=== PATIENT | female | born 1980 | race Caucasian/White ===

== ENCOUNTER 2018-09-18 01:13 | Inpatient (IN) ==
[2018-09-18] MEDS ORDERED: NS 1,000 ML IV ONE ×3 (01:30→04:51)
[2018-09-18 01:43] LABS: BE -19.9 mmoll (-2.0-2.0); BLOOD TYPE VENOUS; HCO3-(ACT) 9.3 mmoll (22-27); PCO2(98.6) 21 mmHg (40-60); PO2(98.6) 93 mmHg (30-55); SAMPLE BLOOD; SAO2 98.1 % (40.0-85.0)
[2018-09-18 01:46] LABS: pH(98.6) 7.14 (7.32-7.43)
--- NOTE | 2018-09-18 01:59 | PROVIDER DOCUMENTATION ---
This chart was entered by Annelise Lopez Scribe, acting as scribe for Nory Durham DO. HPI-General Adult - General Stated Complaint: high blood sugar Time Seen by Provider: 09/18/18 01:18 Source: patient Allergies/Adverse Reactions: Patient Allergies Allergy/AdvReac Type Severity Reaction Status Date / Time amoxicillin [From Augmentin] Allergy RASH Verified 09/18/18 01:31 cefaclor [From Ceclor] Allergy ITCHING Verified 09/18/18 01:31 clavulanic acid Allergy RASH Verified 09/18/18 01:31 [From Augmentin] Sulfa (Sulfonamide Allergy Unknown Verified 09/18/18 01:31 Antibiotics) Home Medications: Home Medication List Medication Instructions Recorded Confirmed Last Taken Type Insulin Aspart [Novolog] 1 pump SQ DAILY 02/10/14 06/04/17 05/30/17 History Venlafaxine [Effexor] 37.5 mg PO DAILY 05/30/17 06/04/17 05/30/17 History Dextroamphetamine/Amphetamine 30 mg PO DAILY 06/04/17 06/04/17 Unknown History [Adderall Xr 30 mg Capsule] Hydrocodone/Acetaminophen [[place] 1 each PO PRN PRN #20 tablet 06/06/17 Unknown Rx 7.5-325 Tablet] - History of Present Illness -Gen Adult Nature of Presenting Problems: Patient is a 38 year old female who presents to the ED via EMS with nausea, vomiting and fatigue. Patient states symptoms started this morning. Patient states she tried to change her insulin pump this morning and fell asleep. Patient states checking her blood sugar this morning and FSBS was 350. Patient states her boyfriend checked her blood sugar prior to calling EMS and FSBS was 480. Patient states she has had 2 shots of insulin today. Location of Pain/Injury: reports: none Pain Radiation: reports: no radiation Quality of Pain: reports: none Severity: reports: mild Onset/Duration: reports: this morning Timing: reports: still present Context/Activities at Onset: reports: light activity Modifying Factors: improves with: nothing Associated Symptoms: reports: fatigue, nausea, vomiting Similar Symptoms Previously?: No Recently seen or treated by another doctor?: No - Diabetes Related Context Context: reports: high blood sugar Review of Systems - Adult - REVIEW OF SYSTEMS - ADULT Constitutional: reports: duke. denies: chills, fever Eyes: reports: no symptoms reported Ears, Nose, Mouth & Throat: reports: no symptoms reported Cardiovascular: reports: no symptoms reported Respiratory: reports: no symptoms reported Gastrointestinal: reports: nausea, vomiting. denies: abdominal pain, diarrhea Genitourinary: reports: no symptoms reported Musculoskeletal: reports: no symptoms reported Integumentary: reports: no symptoms reported Neurological: reports: no symptoms reported Psychiatric: reports: no symptoms reported Endocrine: reports: no symptoms reported Hematologic/Lymphatic: reports: no symptoms reported Allergic/Immunologic: reports: no symptoms reported All Other Systems: Reviewed and Negative Past History - Adult - PAST MEDICAL HISTORY-ADULT Review of Records: reports: Nursing Assessment Review, Medications Reviewed, Social history reviewed & non-contributory. Major Childhood Illnesses: reports: denies history Cardiovascular: reports: denies history Respiratory: reports: denies history Gastrointestinal: reports: denies history Obstetrical/Gynecological: reports: denies history Genitourinary: reports: denies history Musculoskeletal: reports: denies history Neurological: reports: denies history Psychiatric: reports: anxiety Endocrine/Immune: reports: Diabetes Other Conditions: reports: denies history - PRIOR SURGERIES/PROCEDURES Surgical/Procedure History: reports: hysterectomy - IMMUNIZATION STATUS Childhood Immunizations: See Nurse Assessment Flu Vaccine: See Nurse Assessment - FAMILY HISTORY Family History: reviewed, not pertinent - SOCIAL HISTORY Smoking: denies Substance Use: denies Living Situation: family Physical Exam-General - PHYSICAL EXAM-ADULT Initial Vital Signs Reviewed: Yes - CONSTITUTIONAL General Appearance: alert, no apparent distress - EYES Eyes: PERRL/EOMI, pink conjunctivae - HEAD, EARS, NOSE, MOUTH & THROAT HENMT: normocephalic/atraumatic, other (dry mucous membranes) - NECK Neck: non-tender, full range of motion - RESPIRATORY Respiratory: chest non-tender, lungs clear, normal breath sounds - CARDIOVASCULAR Cardiovascular: normal peripheral pulses, tachycardia - GASTROINTESTINAL (ABDOMEN) Abdominal Exam: normal bowel sounds, non tender, soft - LYMPHATIC Lymphatic: no adenopathy - MUSCULOSKELETAL Back Exam: normal inspection, no CVA tenderness Extremity: normal range of motion, non-tender - SKIN Integumentary: normal color, normal turgor, warm/dry - NEUROLOGIC Neurologic: grossly normal - PSYCHIATRIC Psych/Mental Status: normal mood/affect, oriented x 3 Progress - PLAN OF CARE/RESULTS Progress/Plan/Lab Results: Clinically stable while in the ED. Her pH is 7.1, bicarb 8, gap 26. She was bolused 2 liters of NS and given 4 units reg insulin and later started on insulin gtt. She was initially only given a bolus of 4 units because her BG was 380 per finger stick. She was admitted to CCU to the hospitalist service for further eval and tx. Result Diagrams: 09/18/18 01:25 09/18/18 01:25 Departure - Departure Date of Disposition Decision: 09/18/18 Time of Disposition Decision: 05:00 DIAGNOSIS: DKA, type 1 Qualifiers: Diabetes mellitus complication detail: without coma Qualified Code(s): E10.10 - Type 1 diabetes mellitus with ketoacidosis without coma Disposition: ADMITTED INPATIENT 09 Certified Medical Emergency: Emergent Condition: Fair Referrals and Follow-Ups: Andres Loo CRNP [Primary Care Provider] - - Critical Care Note This patient required my direct & personal management of CC.: Yes Total Time (mins): 33 Critical Care Statement: This patient required my direct personal management to treat or rule out processes, the absence of which, could potentiallly result in sudden, clinically significant life or limb threatening deterioration. Attestation - Physician/ LUPE Attestation The physician spent face to face time with patient:: Yes Advanced Practice Provider documentation review:: Supervising physician onsite and consulted in the evaluation and care of this patient. The physician did have a face to face encounter with the patient. This chart was documented by the indicated scribe, (Annelise Lopez Scribe) and accurately reflects the services I performed and decisions made by me, Nory Durham DO, as attested by the provider's signature.
[2018-09-18 04:19] LABS: BASO# 0.11 X1000 (0.0-0.2); BASO% 0.3 % (0.0-0.8); EOS# 0.04 X1000 (0.0-0.7); EOS% 0.1 % (0.0-10.0); HEMATOCRIT 46.3 % (37.0-47.0); HEMOGLOBIN 15.7 g/dL (12.0-16.0); IMM GRAN# 0.26 X1000 (0.0-0.04); IMM GRAN% 0.6 % (0.0-0.5); LYMPH# 2.45 X1000 (1.2-3.4); LYMPH% 6.1 % (20.5-51.1); MCHC 33.9 g/dL (33-37); MCV 85.4 FL (81-99); MONO# 1.38 X1000 (0.11-0.59); MONO% 3.4 % (1.7-9.3); MPV 11.1 FL (7.4-10.4); NEUT# 36.02 X1000 (1.4-6.5); NEUT% 89.5 % (42.2-75.2); PLT 409 X1000 (130-400); RBC 5.42 XMIL (4.2-5.4); RDW 13.2 % (11.5-14.5); WBC 40.26 X1000 (4.8-10.8)
[2018-09-18] MEDS ORDERED: HUMULIN R IV ONE (04:22)
[2018-09-18 04:39] LABS: ESTIMATED GFR > 60
[2018-09-18 04:42] LABS: AGAP 26; ALBUMIN 4.3 g/dL (3.5-5.0); ALKALINE PHOSPHATASE 116 U/L (32-104); BUN 21 mg/dL (8-22); CALCIUM 9.8 mg/dL (8.8-10.2); CHLORIDE 97 mmol/L (98-107); COSMO 287; GOT 37 U/L (10-30); GPT 28 U/L (10-36); SODIUM 131 mmol/L (136-145); TCO2 8 mmol/L (25-35); TOTAL PROTEIN 7.9 g/dL (6.3-8.3)
[2018-09-18 04:51] LABS: GLUCOSE 485 mg/dL (70-104)
[2018-09-18] MEDS ORDERED: MAGNESIUM SULFATE 2 GM/S.W.I. 2 GM/50 ML IVPB IV ONE (04:59)
[2018-09-18 05:05] LABS: ACETONE SERUM LARGE (NEGATIVE)
[2018-09-18] MEDS ORDERED: COMPAZINE IV PRN (05:41)
[2018-09-18] MEDS ORDERED: COMPAZINE PO PRN (05:47)
[2018-09-18] MEDS ORDERED: POTASSIUM CHLORIDE 20% LIQUID PO PRN (05:47)
[2018-09-18] MEDS: NS 1,000 ML IV SCH ×3 (05:47→07:47)
[2018-09-18] MEDS ORDERED: MAGNESIUM SULFATE 2 GM/S.W.I. 2 GM/50 ML IVPB IV PRN (05:47)
[2018-09-18] MEDS ORDERED: D50W SYRINGE IV PRN (05:47)
--- NOTE | 2018-09-18 06:53 | HISTORY AND PHYSICAL ---
Patient of Ritika Paul in [place]. REASON FOR ADMISSION: One day history of vomiting and fatigue. Ms. Blessing Fong is a 38-year-old lady with a past medical history of type 1 diabetes. She comes in today complaining of 1-day history of vomiting and fatigue. She checks her blood sugar and they are reading very high. She says that whenever she gets a reading this high, she usually starts to either get sick to her stomach or vomit. She says this usually signifies that her insulin pump is either empty or running low. She said she tries to change out her pump and fill it up with insulin but for some reason, she just went into a state of somnolence for about 1-2 hours. By the time she was awakened by her daughter, her nausea had intensified and she developed polyuria and polydipsia with increased weakness. She then decided to come to the ER to be evaluated. Since she has been here, she has received about 2 L of normal saline and 4 units of insulin and feels better. REVIEW OF SYSTEMS: A 12 system review was done. Positive findings per HPI. No cardiorespiratory. No additional GI or complaints. No focal neurological complaints. The patient did state she developed shortness of breath and tachypnea but this has resolved with administration of fluid. ALLERGIES: She is allergic to Augmentin, cephalosporins, sulfa, sulfonamides. HOME MEDICATIONS: Have not been reconciled but she does take insulin pump. FAMILY HISTORY: Significant for cancer in her family, i.e. colon cancer in her dad at 46, type 1 diabetes in her mother. SURGICAL HISTORY: She has had a tonsillectomy, ORIF of the left hand, hysterectomy, section, BSO. SOCIAL HISTORY: She does not smoke, drink or use illicit drugs. LAB WORK: Sodium 131. Anion gap 26. Bicarb is 8. BUN is 21, creatinine 1.0. Glucose 485. AST 37, ALT 28, alkaline phosphatase 116. White count 40,000, H and H 15 and 46, platelets 409,000 with 89% neutrophils. Large acetones. PH 7.14 with PCO2 of 93, bicarb of 21, lactate 3.9. PHYSICAL EXAMINATION: VITAL SIGNS: Temperature is 97.7 degrees, heart rate is 109, respirations 19, 100% on room air. 113/62 blood pressure. GENERAL: She is a middle-aged woman who is A and O x3, normal mood and affect. HEENT: Head is normocephalic, atraumatic. ENT and oropharyngeal exam is grossly normal. No central cyanosis. NECK: Supple. No JVD, carotid bruits or thyromegaly. Good skin turgor. CHEST: Clear to auscultation with good air entry in both lung baig. CARDIOVASCULAR: First and second heart sounds heard. No gallops, murmurs or rubs. Rhythm is regular. ABDOMEN: Full, soft, nontender. No organomegaly. Bowel sounds are normal. RECTAL: Deferred at this time. EXTREMITIES: Patient has a slightly diminished pulse volume but rapid, symmetrical, regular. No edema, clubbing or peripheral cyanosis. NEUROLOGIC: No focal deficits. SKIN: Intact. No breakdown, lesions or erythema. MUSCULAR: Grossly normal. ASSESSMENT: 1. DKA. 2. Severe dehydration. 3. Reactive leukocytosis. PLAN: Patient will be initiated on our DKA protocol. Once she is out of DKA, her insulin pump can be restarted. I do anticipate that within 24 hours, i.e. by tomorrow, she should be out of DKA. Urinalysis and other studies have been ordered to rule out coexistent infection ; however, patient denies any other complaints. Electrolytes need to be followed closely. Patient' s EKG did show sinus tachycardia with QT prolongation. For now, we will prophylactically replace magnesium and recheck EKG later today. IV crystalloid replacement. Total critical care time was 38 minutes. The patient will be admitted to the ICU for better management of her symptoms. cc: MD Dr. Humberto Duke [place] MTDD
[2018-09-18 07:12] LABS: I-STAT BE -19 mmoll (-2-3); I-STAT GLUCOSE 342 mg/dL (70-105); I-STAT HEMOGLOBIN 12.9 g/dL (11.5-17.5); I-STAT K 4.2 mmoll (3.5-4.9); I-STAT TCO2 10 mmoll (23-27); I-STAT pH 7.182 (7.350-7.450)
[2018-09-18 07:14] LABS: BANDS 5 % (0-1); LYMPHS 8 % (21-51); MONO 4 % (1-9); SEGS 83 % (42-75)
--- NOTE | 2018-09-18 07:18 | EKG Report ---
Test Performed on : 09/18/2018 01:50:53 AM Test Reason : weakness, sob, nv Blood Pressure : / mmHG Vent. Rate : 107 BPM Atrial Rate : 107 BPM P-R Int : 126 ms QRS Dur : 102 ms QT Int : 406 ms P-R-T Axes : 066 058 043 degrees QTc Int : 542 ms Sinus tachycardia. Prolonged QT Abnormal ECG No previous ECGs available Unconfirmed Result
[2018-09-18 07:59] LABS: CHOLESTEROL 181 mg/dL (0-200); HDL 75 mg/dL (45-65); LDL 98 mg/dL; MAGNESIUM 2.5 mg/dL (1.5-2.7); PHOSPHORUS 5.3 mg/dL (2.7-4.5); TRIGLYCERIDES 38 mg/dL (35-135); VLDL 8 mg/dL
[2018-09-18] MEDS: HUMULIN R 100 UNIT in NS 99 ML IV SCH (08:36)
[2018-09-18] MEDS: POTASSIUM CHLORIDE 10 MEQ in NS 1,000 ML IV SCH ×5 (08:50→22:02)
[2018-09-18 09:02] LABS: URINE SOURCE CLEAN CATCH
[2018-09-18 09:07] LABS: BILIRUBIN URINE NEGATIVE (NEGATIVE); BLOOD URINE NEGATIVE (NEGATIVE); COLOR YELLOW; GLUCOSE URINE >1000 mg/dL (NEGATIVE); KETONE URINE >150 mg/dL (NEGATIVE); LEUKOCYTES URINE NEGATIVE (NEGATIVE); NITRITE URINE NEGATIVE (NEGATIVE); PROTEIN URINE NEGATIVE (NEGATIVE); SP GRAVITY URINE 1.016; TURBIDITY URINE CLEAR (CLEAR); UROBILINOGEN URINE NORMAL (NORMAL)
[2018-09-18 09:08] LABS: UR EPITHELIAL CELLS <10 /HPF (<10); URINE BACTERIA NEGATIVE /HPF; URINE RBC <10 /HPF (<10); URINE WBC <10 /HPF (<10)
--- NOTE | 2018-09-18 10:23 | Diag Imaging Result Doc PS360 ---
EXAM: CHEST-2 VIEWS HISTORY: leukocytosis dyspnea TECHNIQUE: Chest two views COMPARISON: None. FINDINGS: The lungs are well expanded. The heart is not enlarged. The vessels are not distended. There are no infiltrates. No pleural effusions. IMPRESSION: No pneumonia. Electronically signed by Fran Aleman 09/18/2018 10:21 AM
--- NOTE | 2018-09-18 10:27 | PROGRESS NOTE ---
DATE: 09/18/2018 SUBJECTIVE: Ms. Fong came in with a 1-day history of vomiting, and she is followed by BRII Driscoll. A 38-year-old with a past medical history of diabetes mellitus, type 1, came in complaining of vomiting and fatigue. Blood sugars were reading very high. She usually starts to either get sick in her stomach or vomits. She says it usually signifies the pump is either empty or running out and tries to change her pump and fill it up with some insulin. But, for some reason, she just went on and stayed in state of somnolence for a couple of hours. On presentation, she was in diabetic ketoacidosis. She was admitted and put on DKA protocol. The temp 97.7 degrees, pulse 100, respirations 19, blood pressure 141/77. Pupils are equal and round. Lungs are clear in all lung baig. Cardiovascular: Regular rhythm and rate without murmur or S3. Abdomen is soft. She is sleeping at the present time and breathing comfortably. I reviewed lab. When she came in, white count was 40,260 and hematocrit 46. Platelet count 409,000. Sodium 1, potassium 5.0, chloride 97, BUN 21, creatinine 1.0. Blood sugars 485. Magnesium was 2.5. Transaminase AST was 37, ALT 28, albumin 4.3. Acetone level was large. Blood gases: pH was 7.182, pCO2 is 62 and PO2 is 104. O2 saturation is 97%. ASSESSMENT AND PLAN: Diabetic ketoacidosis. Continue present regimen with fluids and insulin. Appears to be improving. We will follow her electrolytes and her acid-base. cc: Jamie Suresh MD
[2018-09-18] MEDS ORDERED: ZOFRAN IV PRN (12:29)
[2018-09-18] MEDS: PRILOSEC PO SCH (13:25)
[2018-09-18] MEDS: LOVENOX SUBQ SCH (13:25)
[2018-09-18] MEDS: TYLENOL PO PRN (13:26)
[2018-09-18 15:24] LABS: AGAP 17; BUN 21 mg/dL (8-22); CALCIUM 8.1 mg/dL (8.8-10.2); CHLORIDE 105 mmol/L (98-107); COSMO 280; CREATININE 0.8 mg/dL (0.5-0.9); ESTIMATED GFR > 60; GLUCOSE 291 mg/dL (70-104); MAGNESIUM 2.3 mg/dL (1.5-2.7); PHOSPHORUS 2.7 mg/dL (2.7-4.5); POTASSIUM 5.1 mmol/L (3.5-5.1); SODIUM 133 mmol/L (136-145); TCO2 11 mmol/L (25-35)
[2018-09-18] MEDS: D5 1/2 NS + KCL 20 MEQ 1,000 ML IV PRN (20:19)
[2018-09-18 21:35] LABS: AGAP 13; BUN 17 mg/dL (8-22); CALCIUM 7.7 mg/dL (8.8-10.2); CHLORIDE 109 mmol/L (98-107); COSMO 278; CREATININE 0.7 mg/dL (0.5-0.9); ESTIMATED GFR > 60; GLUCOSE 182 mg/dL (70-104); PHOSPHORUS 2.2 mg/dL (2.7-4.5); POTASSIUM 4.2 mmol/L (3.5-5.1); SODIUM 136 mmol/L (136-145); TCO2 14 mmol/L (25-35)
[2018-09-18] MEDS: POTASSIUM CHLORIDE 10% LIQUID PO PRN (22:12)
[2018-09-19] MEDS: TYLENOL PO PRN ×3 (00:08→21:14)
[2018-09-19] MEDS: D5 1/2 NS + KCL 20 MEQ 1,000 ML IV PRN (02:09)
[2018-09-19 03:38] LABS: BASO# 0.03 X1000 (0.0-0.2); BASO% 0.1 % (0.0-0.8); MCHC 33.2 g/dL (33-37)
[2018-09-19] MEDS: POTASSIUM CHLORIDE 10 MEQ in NS 1,000 ML IV SCH ×3 (04:00→09:36)
[2018-09-19 05:01] LABS: EOS# 0.02 X1000 (0.0-0.7); EOS% 0.1 % (0.0-10.0); HEMOGLOBIN 12.3 g/dL (12.0-16.0); IMM GRAN# 0.06 X1000 (0.0-0.04); IMM GRAN% 0.3 % (0.0-0.5); LYMPH# 2.61 X1000 (1.2-3.4); LYMPH% 12.4 % (20.5-51.1); MCH 28.6 PG (27-31); MONO# 0.97 X1000 (0.11-0.59); MONO% 4.6 % (1.7-9.3); MPV 10.3 FL (7.4-10.4); NEUT# 17.32 X1000 (1.4-6.5); NEUT% 82.5 % (42.2-75.2); PLT 257 X1000 (130-400); RDW 13.5 % (11.5-14.5); WBC 21.01 X1000 (4.8-10.8)
[2018-09-19 05:02] LABS: AGAP 11; ALB/GLOB RATIO 1.4; ALBUMIN 2.9 g/dL (3.5-5.0); BUN 12 mg/dL (8-22); CALCIUM 7.9 mg/dL (8.8-10.2); CHLORIDE 110 mmol/L (98-107); COSMO 283; CREATININE 0.6 mg/dL (0.5-0.9); ESTIMATED GFR > 60; GLUCOSE 304 mg/dL (70-104); GOT 23 U/L (10-30); GPT 24 U/L (10-36); PHOSPHORUS 1.2 mg/dL (2.7-4.5); POTASSIUM 4.5 mmol/L (3.5-5.1); SODIUM 136 mmol/L (136-145); TCO2 15 mmol/L (25-35); TOTAL BILIRUBIN 0.24 mg/dL (0.20-1.00)
[2018-09-19] MEDS: POTASSIUM CHLORIDE 10% LIQUID PO PRN (05:14)
[2018-09-19] MEDS: PRILOSEC PO SCH (06:25)
[2018-09-19 06:48] LABS: ALKALINE PHOSPHATASE 64 U/L (32-104)
[2018-09-19] MEDS: HUMULIN R 100 UNIT in NS 99 ML IV SCH (07:36)
[2018-09-19] MEDS: LOVENOX SUBQ SCH (09:07)
[2018-09-19 09:54] LABS: AGAP 10; BUN 9 mg/dL (8-22); CALCIUM 8.3 mg/dL (8.8-10.2); CHLORIDE 107 mmol/L (98-107); COSMO 273; CREATININE 0.7 mg/dL (0.5-0.9); GLUCOSE 243 mg/dL (70-104); MAGNESIUM 2.2 mg/dL (1.5-2.7); POTASSIUM 5.3 mmol/L (3.5-5.1); SODIUM 133 mmol/L (136-145); TCO2 16 mmol/L (25-35)
[2018-09-19 09:56] LABS: PHOSPHORUS 0.9 mg/dL (2.7-4.5)
[2018-09-19 10:26] LABS: ALLEN TEST YES; BE -4.1 mmoll (-3.0-3.0); BLOOD TYPE ARTERIAL; HCO3-(ACT) 21.7 mmoll (20.0-26.0); METHB 1.3 % (0.0-1.5); MODALITY ROOM AIR; O2(CT) 16.7 mL/dL (15.0-23.0); O2HB 96.2 % (95.0-99.0); PCO2(98.6) 31 mmHg (35-45); PO2(98.6) 93 mmHg (60-100); SAMPLE BLOOD; SAO2 98.8 % (95.0-100.0); THB 12.3 g/dL (11.5-17.4); pH(98.6) 7.41 (7.35-7.45)
[2018-09-19] MEDS ORDERED: POTASSIUM PHOSPHATE 30 MEQ in NS 250 ML IV ONE (11:00)
--- NOTE | 2018-09-19 12:02 | PROGRESS NOTE ---
DATE: 09/19/2018 SUBJECTIVE: She is feeling better. Her acidosis has corrected. Blood gases look better. OBJECTIVE: Vital Signs: Remains afebrile, temperature 98.4 degrees, pulse 88, respirations 20, blood pressure 113/78. HEENT: Pupils are equal and round. Lungs: Clear in all lung baig. Cardiovascular: Regular rate without murmur S3. Abdomen: Soft. Skin: Warm and dry. LABORATORY STUDIES: Urine output is 5000 mL. Lab from this morning: White count has come down from 40,000 to 21,000, 10, hematocrit 37, platelet count 257,000. Sodium 133, potassium 5.3, chloride 107, BUN 9, creatinine 0.7. Blood sugars 270, 243, 288, 305. Phosphorus was 0.9. Her calcium 8.3 magnesium 2.2. ASSESSMENT AND PLAN: Diabetic ketoacidosis. Supplement electrolytes. Give her little K- Phosphorus. Acidosis seems to have resolved so continue her insulin. She is hungry so we will advance her to a diet. We are making progress. Review of her orders, I do not see any change at this point. cc: Jamie Suresh MD
[2018-09-19 14:54] LABS: AGAP 10; BUN 6 mg/dL (8-22); CALCIUM 8.2 mg/dL (8.8-10.2); CHLORIDE 113 mmol/L (98-107); COSMO 285; CREATININE 0.6 mg/dL (0.5-0.9); ESTIMATED GFR > 60; GLUCOSE 167 mg/dL (70-104); MAGNESIUM 1.7 mg/dL (1.5-2.7); PHOSPHORUS 2.4 mg/dL (2.7-4.5); POTASSIUM 4.5 mmol/L (3.5-5.1); SODIUM 142 mmol/L (136-145); TCO2 19 mmol/L (25-35)
[2018-09-19] MEDS: HUMULIN R SUBQ SCH ×3 (16:23→22:33)
[2018-09-19 21:12] LABS: AGAP 9; BUN 12 mg/dL (8-22); CALCIUM 8.1 mg/dL (8.8-10.2); CHLORIDE 106 mmol/L (98-107); COSMO 281; CREATININE 0.8 mg/dL (0.5-0.9); ESTIMATED GFR > 60; GLUCOSE 372 mg/dL (70-104); MAGNESIUM 1.8 mg/dL (1.5-2.7); PHOSPHORUS 1.7 mg/dL (2.7-4.5); POTASSIUM 4.7 mmol/L (3.5-5.1); SODIUM 133 mmol/L (136-145); TCO2 18 mmol/L (25-35)
[2018-09-20 04:50] LABS: AGAP 7; BUN 12 mg/dL (8-22); CALCIUM 8.2 mg/dL (8.8-10.2); CHLORIDE 107 mmol/L (98-107); COSMO 280; CREATININE 0.6 mg/dL (0.5-0.9); ESTIMATED GFR > 60; GLUCOSE 87 mg/dL (70-104); MAGNESIUM 1.6 mg/dL (1.5-2.7); PHOSPHORUS 2.1 mg/dL (2.7-4.5); POTASSIUM 4.1 mmol/L (3.5-5.1); SODIUM 141 mmol/L (136-145); TCO2 27 mmol/L (25-35)
[2018-09-20] MEDS: PRILOSEC PO SCH (06:06)
[2018-09-20] MEDS: HUMULIN R SUBQ SCH ×2 (06:06→10:08)
[2018-09-20 08:04] VITALS: BP 122/88
[2018-09-20] MEDS: LOVENOX SUBQ SCH (08:44)
[2018-09-20 09:39] LABS: SODIUM 137 mmol/L (136-145)
[2018-09-20 09:48] LABS: AGAP 11; BUN 10 mg/dL (8-22); CHLORIDE 100 mmol/L (98-107); COSMO 280; CREATININE 0.6 mg/dL (0.5-0.9); ESTIMATED GFR > 60; GLUCOSE 231 mg/dL (70-104); MAGNESIUM 1.6 mg/dL (1.5-2.7); PHOSPHORUS 2.2 mg/dL (2.7-4.5); POTASSIUM 3.9 mmol/L (3.5-5.1); TCO2 26 mmol/L (25-35)
[2018-09-20] MEDS: TYLENOL PO PRN ×2 (09:57→14:09)
--- NOTE | 2018-09-20 10:16 | DISCHARGE SUMMARY ---
ADMISSION DATE: 09/18/2018 DISCHARGE DATE: HOSPITAL COURSE: The patient has remained afebrile. She feels much better. She still has a headache and asking for some Tylenol. Blood sugars appear to be under better control. She has all the things for her insulin pump at home. I am going to let her move to the floor. If she does okay this afternoon, anticipate discharging her home. She presented on 09/18/2018 with a 1- day history of vomiting and fatigue. A 38-year-old with a past medical history of type 1 diabetes mellitus. Came in complaining of a 1-day history of vomiting and fatigue. Checked her blood sugars and they were reading very high. Whenever she gets a reading this high, she usually starts getting sick to her stomach or vomiting. Insulin pump was either empty or running low. She tried to change the pump to fill it with insulin but for some reason, she just went into a state of somnolence for about 1 or 2 hours so presented here in DKA. Was given insulin and fluid. Her acidosis corrected fairly quickly. Her white count was elevated. I think that was just stress demargination. There was no sign of infection. Her chemistries remained good. We did supplement electrolytes and felt she was okay to go home. Expect she will get to go home this afternoon. DISCHARGE MEDICATIONS: She will go back on her home medicine, the insulin pump, insulin aspartate. It is a subcutaneous insulin pump. She takes Effexor 37.5 mg daily. She has some hydrocodone p.r.n. pain and I think she takes Adderall XR 30 mg a day for ADD. LABORATORY DATA: Electrolytes this morning looked very good. Sodium is 137, potassium 3.9, chloride 100, bicarb is 26, BUN 10, creatinine 0.6. cc: Jamie Suresh MD
== END 2018-09-20 14:38 | disposition home or self-care (01) | DRG 639 ==
LOC: ED 01:13 → EDIPHOLD 07:52 → SUATTDRO 07:52 → ICU 11:51 → 4N 09-20 12:04
PROVIDERS: ATTEND Emergency Medicine
CPT/HCPCS: 36415; 71020; 71046; 80048; 80053; 80061; 81001; 82009; 82330; 82805; 82947; 82948; 83036; 83735; 84100; 84132; 84295; 85014; 85018; 85025; 87040; 93005; 96361; 96365; 96366; 96367; 99285; A9270; J1650; J3475; J3480; J7030; J7050; XXXXX